=== PATIENT | male | born 1955 | race Caucasian/White ===

== ENCOUNTER 2017-02-21 20:02 | Emergency (ER) ==
[2017-02-21 20:07] VITALS: BP 153/96; TEMP 98.3; BMI 28.4
--- NOTE | 2017-02-21 20:21 | ED.PDOC ---
General ED Provider: Dr. KIMBERLYN VALDEZ Chief Complaint: Finger Laceration Stated Complaint: has cut on rt index finger. had Tetanus 2 years ago. Time Seen by Physician: 20:19 Mode of Arrival: Walk-In Information Source: Patient Nursing and Triage Documentation Reviewed and Agree: Yes Skin Complaint Exam - Laceration/Upper Ext. Complaint/Exam Location of Injury: Right (index finger) Mechanism of Injury: Laceration Symptoms Are: Still present Initial Severity: Mild Current Severity: Mild Aggravating: Movement Alleviating: None Associated Signs and Symptoms: Denies: Fever, Chills, Erythema, Numbness, Tingling Differential Diagnoses: Laceration Review of Systems - Review Of Systems Constitutional: Reports: No symptoms Eyes: Reports: No symptoms Ears, Nose, Mouth, Throat: Reports: No symptoms Respiratory: Reports: No symptoms Cardiac: Reports: No symptoms GI: Reports: No symptoms : Reports: No symptoms Musculoskeletal: Reports: No symptoms Skin: Reports: No symptoms Neurological: Reports: No symptoms Endocrine: Reports: No symptoms Hematologic/Lymphatic: Reports: No symptoms All Other Systems: Reviewed and Negative Past Medical History - Past Medical History Previously Healthy: Yes Endocrine: Reports: None Cardiovascular: Reports: None Respiratory: Reports: None Hematological: Reports: None Gastrointestinal: Reports: None Genitourinary: Reports: None Neuro/Psych: Reports: None Musculoskeletal: Reports: None Cancer: Reports: None - Surgical History General Surgical History: Reports: None - Family History Family History: Reports: None - Social History Smoking Status: Never smoker Hx Substance Use: No Alcohol Screening: Occasionally - Immunizations Tetanus Shot up to Date: Yes (2 YEARS AGO) Physical Exam - Physical Exam Appearance: Well-appearing, No pain distress, Well-nourished Eyes: VICKI, EOMI, Conjunctiva clear ENT: Ears normal, Nose normal, Oropharynx normal Respiratory: Airway patent, Breath sounds clear, Breath sounds equal, Respirations nonlabored Cardiovascular: RRR, Pulses normal, No rub, No murmur GI/: Soft, Nontender, No masses, Bowel sounds normal, No Organomegaly Musculoskeletal: Normal strength, ROM intact, No edema, No calf tenderness Skin: Warm, Dry, Normal color Neurological: Sensation intact, Motor intact, Reflexes intact, Cranial nerves intact, Alert, Oriented Psychiatric: Affect appropriate, Mood appropriate Procedures - Laceration/Wound Repair No standard instances Wound Description: Linear Wound Length (cm): 1 cm Wound Explored: Clean Wound Irrigated: Yes Wound Repaired With: Dermabond Critical Care Note - Critical Care Note Total Time (mins): 0 Course - Course Vital Signs: Temp Pulse Resp BP Pulse Ox 02/21/17 20:03 98.3 F 71 18 153/96 H 96 Departure - Departure Time of Disposition: 20:21 Disposition: HOME SELF-CARE Discharge Problem: Laceration of finger Instructions: Laceration (ED) Condition: Stable Pt referred to PMD for follow-up: Yes Additional Instructions: tylenol prn Keep hand elevated If redness or swelling needs to come back for the antibiotics f/u [facility] in 3-4 days Allergies/Adverse Reactions: Allergies acetaminophen [From Tylenol] Adverse Reaction (Verified 02/21/17 20:08) Home Medications: Ambulatory Orders Pantoprazole Sodium [Protonix] 40 mg PO QDAC 02/21/17 Disposition Discussed With: Patient
== END 2017-02-21 20:37 | disposition home or self-care (01) ==
LOC: ED 20:02
DX: S61.210A Laceration without foreign body of right index finger without damage to nail, initial encounter (principal); W45.8XXA Other foreign body or object entering through skin, initial encounter
CPT/HCPCS: 99283